=== PATIENT | male | born 1995 | race Caucasian/White ===

== ENCOUNTER 2017-09-10 00:31 | Emergency (ER) | payer BC ==
[2017-09-10 00:39] VITALS: RESP 16; O2SAT 97
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
[2017-09-10] MEDS ORDERED: ONDANSETRON DISINTEGRATING 4 MG TAB PO ONE (01:15)
[2017-09-10] MEDS ORDERED: ACETAMINOPHEN 500 MG TAB PO ONE (01:15)
[2017-09-10] MEDS ORDERED: IBUPROFEN 800 MG TAB PO ONE (01:15)
[2017-09-10 01:51] VITALS: BP 118/66; PULSE 68; TEMP 98.1
== END 2017-09-10 01:50 | disposition home or self-care (01) ==
DX: S06.0X0A Concussion without loss of consciousness, initial encounter (principal); V00.311A Fall from snowboard, initial encounter; Y99.8 Other external cause status; Y93.23 Activity, snow (alpine) (downhill) skiing, snowboarding, sledding, tobogganing and snow tubing